=== PATIENT | female | born 1990 | race Caucasian/White ===

== ENCOUNTER 2020-12-04 15:39 | Emergency (ER) | payer SELFPAY ==
[~2020-12-04] VITALS: Ht 152.4 cm; Wt 122.5 kg
[2020-12-04] MEDS ORDERED: PROAIR HFA8.5 GM INH (16:53)
[2020-12-04] MEDS ORDERED: DECADRON6 M1 PO (16:53)
[2020-12-05] MEDS ORDERED: MUCINEX DM 30/61 TAB PO (10:45)
== END 2020-12-04 17:01 | disposition home or self-care (01) ==
LOC: ED 15:39
DX: U07.1 COVID-19 (principal)

== ENCOUNTER 2020-12-08 10:43 | Inpatient (IN) | payer SELFPAY ==
[2020-12-08] VITALS (40 sets, daily range): BP systolic 76–162; BP diastolic 25–102
[~2020-12-08] VITALS: Ht 177.8 cm; Wt 127.0 kg
[~2020-12-08 10:43] MED LIST: DECADRON6 M1 PO; MUCINEX DM 30/61 TAB PO; PROAIR HFA8.5 GM INH
[2020-12-08 11:20] LABS: ABG BASE EXCESS -12.1 mmol/L (-2.0-2.0); ARTERIAL BLOOD GAS PO2 61.7 (80-90)
[2020-12-08 11:22] LABS: ARTERIAL BLOOD GAS PH 7.149 (7.35-7.45)
[2020-12-08 11:59] LABS: HEMATOCRIT 30.6 % (37.0-47.0); MEAN CORPUSCULAR HGB CONC 29.4 g/dl (33.0-37.0); MEAN PLATELET VOLUME 10.5 fl (9.6-12.3); NUCLEATED RED BLOOD CELL 0.3 10*3/uL (0.0-0.0); NUCLEATED RED BLOOD CELL 0.8 % (0.0-0.0); PLATELET COUNT AUTOMATED 496 10*3/uL (130-400); RED CELL DISTRI WIDTH 16.7 % (0-14.5); WHITE BLOOD COUNT 34.1 10*3/uL (4.8-10.8)
[2020-12-08 12:13] LABS: ALBUMIN 2.3 gm/dl (3.1-4.5); ALKALINE PHOSPHATASE 56 U/L (45-117); BUN 13 mg/dl (7-24); CHLORIDE 106 mmol/L (98-107); CREATININE 1.23 mg/dL (0.55-1.02); LDH 613 U/L (84-246); POTASSIUM 3.6 mmol/L (3.5-5.1); SGOT/AST 86 IU/L (3-35); SGPT/ALT 57 U/L (12-78); SODIUM 139 mmol/L (136-145); TOTAL PROTEIN 6.3 gm/dL (6.4-8.2)
[2020-12-08 12:14] LABS: BETA-HCG, QUANT < 1.0 mIU/mL (1-3)
[2020-12-08 12:37] LABS: BURR CELLS FEW; OVALOCYTES FEW; PLATELET SUFFICIENCY HIGH (NORMAL); TOTAL CELLS COUNTED 100 #CELLS
[2020-12-08 15:40] LABS: ABG BASE EXCESS -4.6 mmol/L (-2.0-2.0); ARTERIAL BLOOD GAS PH 7.317 (7.35-7.45)
[2020-12-08 16:33] LABS: ARTERIAL BLOOD GAS PO2 61.4 (80-90)
[2020-12-08 16:36] LABS: ARTERIAL BLOOD GAS PH 7.131 (7.35-7.45)
[2020-12-08 16:40] LABS: ABG BASE EXCESS -10.7 mmol/L (-2.0-2.0)
[2020-12-08 19:27] LABS: ABG BASE EXCESS -5.7 mmol/L (-2.0-2.0); ARTERIAL BLOOD GAS PH 7.239 (7.35-7.45); ARTERIAL BLOOD GAS PO2 50.4 (80-90)
[2020-12-08 22:00] LABS: BILIRUBIN Negative (Negative); BLOOD 3+ (Negative); CLARITY Cloudy (Clear); COLOR Dark Yellow (Yellow); GLUCOSE Negative (Negative); KETONE Negative (Negative); LEUKO ESTERASE Trace (Negative); NITRITE Negative (Negative); PH 5.5 (4.5-8.0)
[2020-12-08 22:13] LABS: BACTERIA 2+; RBC TNTC rbc/hpf (0-2)
[2020-12-09] VITALS (45 sets, daily range): BP systolic 107–160; BP diastolic 50–85
[2020-12-09 06:13] LABS: TOTAL PROTEIN 6.1 gm/dL (6.4-8.2)
[2020-12-09 06:28] LABS: HEMATOCRIT 31.9 % (37.0-47.0); MEAN CELL VOLUME 86.4 fl (81.0-99.0); MEAN CORPUSCULAR HGB 25.2 pg (27.0-31.0); MEAN CORPUSCULAR HGB CONC 29.2 g/dl (33.0-37.0); MEAN PLATELET VOLUME 10.4 fl (9.6-12.3); NUCLEATED RED BLOOD CELL 0.9 % (0.0-0.0); RED BLOOD COUNT 3.69 10*6/uL (4.10-5.10); RED CELL DISTRI WIDTH 16.8 % (0-14.5)
[2020-12-09 06:37] LABS: ALBUMIN 2.3 gm/dl (3.1-4.5)
[2020-12-09 06:48] LABS: PLATELET COUNT AUTOMATED 298 10*3/uL (130-400)
[2020-12-09 06:56] LABS: CREATININE 2.91 mg/dL (0.55-1.02)
[2020-12-09 07:12] LABS: POTASSIUM 5.2 mmol/L (3.5-5.1)
[2020-12-09 07:34] LABS: TOTAL CELLS COUNTED 100 #CELLS
[2020-12-09 07:35] LABS: BURR CELLS FEW; OVALOCYTES FEW; PLATELET SUFFICIENCY NORMAL (NORMAL)
[2020-12-09 07:37] LABS: NUCLEATED RED BLOOD CELL 0.3 10*3/uL (0.0-0.0)
[2020-12-09 08:04] LABS: ARTERIAL BLOOD GAS PO2 71.8 (80-90)
[2020-12-09 08:06] LABS: ABG BASE EXCESS -7.9 mmol/L (-2.0-2.0)
[2020-12-09 08:08] LABS: ARTERIAL BLOOD GAS PH 7.135 (7.35-7.45)
[2020-12-09 11:50] LABS: ABG BASE EXCESS -8.8 mmol/L (-2.0-2.0)
[2020-12-09 11:51] LABS: ARTERIAL BLOOD GAS PH 7.103 (7.35-7.45)
== END 2020-12-09 12:38 | disposition short-term general hospital (02) | DRG 208 ==
LOC: ED 10:43 → ICCU 11:27 → EDHOLD 11:27 → ICCU 13:24
PROVIDERS: Family Medicine; Internal Medicine Critical Care Medicine; Nurse Practitioner; ADMIT Internal Medicine; ATTEND Internal Medicine
PROC: 5A1935Z Respiratory Ventilation, Less than 24 Consecutive Hours (ICD-10-PCS; principal; 2020-12-08)
PROC: 0BH17EZ Insertion of Endotracheal Airway into Trachea, Via Natural or Artificial Opening (ICD-10-PCS; 2020-12-08)
PROC: 5A09357 Assistance with Respiratory Ventilation, Less than 24 Consecutive Hours, Continuous Positive Airway Pressure (ICD-10-PCS; 2020-12-08)
DX: U07.1 COVID-19 (principal); J12.82 Pneumonia due to coronavirus disease 2019; J80 Acute respiratory distress syndrome; N17.9 Acute kidney failure, unspecified; E87.2 Acidosis; Z68.41 Body mass index [BMI] 40.0-44.9, adult; N18.9 Chronic kidney disease, unspecified; R73.9 Hyperglycemia, unspecified; D64.9 Anemia, unspecified; E66.01 Morbid (severe) obesity due to excess calories; R74.01 Elevation of levels of liver transaminase levels; I95.9 Hypotension, unspecified; Z88.8 Allergy status to other drugs, medicaments and biological substances

== ENCOUNTER → 2021-02-12 | Outpatient (CLI) | payer OTHER | LOC: WOUNDCARE 02:05 | PROVIDERS: ATTEND Nurse Practitioner | DX: L89.893 Pressure ulcer of other site, stage 3 (principal); N19 Unspecified kidney failure ==

== ENCOUNTER → 2021-02-25 | Outpatient (CLI) | payer OTHER | LOC: WOUNDCARE 01:06 | PROVIDERS: ATTEND Nurse Practitioner Family | DX: L89.893 Pressure ulcer of other site, stage 3 (principal); N18.9 Chronic kidney disease, unspecified; I25.2 Old myocardial infarction; Z99.2 Dependence on renal dialysis ==

== ENCOUNTER → 2021-03-11 | Outpatient (CLI) | payer OTHER | LOC: WOUNDCARE 01:37 | PROVIDERS: ATTEND Nurse Practitioner Family | DX: L89.893 Pressure ulcer of other site, stage 3 (principal); N19 Unspecified kidney failure; I25.2 Old myocardial infarction; Z99.2 Dependence on renal dialysis ==

== ENCOUNTER → 2021-03-25 | Outpatient (CLI) | payer OTHER | LOC: WOUNDCARE 00:55 | PROVIDERS: ATTEND Nurse Practitioner Family | DX: L89.893 Pressure ulcer of other site, stage 3 (principal); N19 Unspecified kidney failure; I25.2 Old myocardial infarction; Z99.2 Dependence on renal dialysis ==

== ENCOUNTER → 2021-10-02 | Outpatient (CLI) | payer OTHER ==
[2021-10-02 11:59] LABS: CREATININE 1.78 mg/dL (0.55-1.02); POTASSIUM 4.1 mmol/L (3.5-5.1)
== END | disposition home or self-care (01) ==
LOC: LAB 11:17
PROVIDERS: ATTEND Internal Medicine Nephrology
DX: N18.30 Chronic kidney disease, stage 3 unspecified (principal)

== ENCOUNTER → 2022-02-08 | Outpatient (CLI) | payer OTHER ==
[2022-02-08 15:35] LABS: BASO # 0.1 10*3/uL (0.0-0.1); BASO % 0.6 % (0.0-1.0); EOS # 0.2 10*3/uL (0.0-0.4); EOS % 1.4 % (1.0-4.0); HEMATOCRIT 37.8 % (37.0-47.0); LYMPH # 2.6 10*3/uL (1.3-4.4); LYMPH % 18.1 % (27.0-41.0); MEAN CELL VOLUME 81.6 fl (81.0-99.0); MEAN CORPUSCULAR HGB CONC 29.4 g/dl (33.0-37.0); MEAN PLATELET VOLUME 9.8 fl (9.6-12.3); MONO % 6.7 % (3.0-9.0); NEUT # 10.5 10*3/uL (2.3-7.9); NEUT % 72.7 % (47.0-73.0); PLATELET COUNT AUTOMATED 479 10*3/uL (130-400); RED BLOOD COUNT 4.63 10*6/uL (4.10-5.10); RED CELL DISTRI WIDTH 16.8 % (0-14.5); WHITE BLOOD COUNT 14.4 10*3/uL (4.8-10.8)
[2022-02-08 15:40] LABS: BILIRUBIN Negative (Negative); BLOOD 3+ (Negative); CLARITY Clear (Clear); COLOR Orange (Yellow); GLUCOSE Negative (Negative); KETONE Negative (Negative); LEUKO ESTERASE 1+ (Negative); NITRITE Negative (Negative); SPECIFIC GRAVITY 1.015 (1.001-1.030); UROBILINOGEN 0.2 E.U./dl (0.0-1.0)
[2022-02-08 15:55] LABS: BACTERIA 2+; RBC TNTC rbc/hpf (0-2)
[2022-02-08 15:56] LABS: EPITHELIAL CELLS 0-2
[2022-02-08 16:03] LABS: FERRITIN 18.2 ng/mL (10.0-291.0)
[2022-02-08 16:06] LABS: CREATININE 1.64 mg/dL (0.55-1.02); POTASSIUM 4.2 mmol/L (3.5-5.1)
== END | disposition home or self-care (01) ==
LOC: LAB 14:41
PROVIDERS: ATTEND Internal Medicine Nephrology
DX: N18.30 Chronic kidney disease, stage 3 unspecified (principal); N25.81 Secondary hyperparathyroidism of renal origin; D63.1 Anemia in chronic kidney disease

== ENCOUNTER → 2022-02-19 | Outpatient (CLI) | payer OTHER ==
[2022-02-19 16:34] LABS: BILIRUBIN Negative (Negative); BLOOD 1+ (Negative); CLARITY Clear (Clear); COLOR Yellow (Yellow); GLUCOSE Negative (Negative); KETONE Negative (Negative); LEUKO ESTERASE 1+ (Negative); NITRITE Negative (Negative); UROBILINOGEN 0.2 E.U./dl (0.0-1.0)
[2022-02-19 16:48] LABS: BACTERIA 1+; WBC 16-20 wbc/hpf (0-5)
== END | disposition home or self-care (01) ==
LOC: LAB 15:59
PROVIDERS: ATTEND Internal Medicine Nephrology
DX: N18.30 Chronic kidney disease, stage 3 unspecified (principal)

== ENCOUNTER → 2022-05-11 | Outpatient (CLI) | payer OTHER ==
[2022-05-11 14:52] LABS: BASO # 0.1 10*3/uL (0.0-0.1); BASO % 0.5 % (0.0-1.0); EOS # 0.2 10*3/uL (0.0-0.4); EOS % 1.6 % (1.0-4.0); LYMPH # 2.5 10*3/uL (1.3-4.4); LYMPH % 16.5 % (27.0-41.0); MEAN CELL VOLUME 78.8 fl (81.0-99.0); MEAN CORPUSCULAR HGB 22.4 pg (27.0-31.0); MEAN CORPUSCULAR HGB CONC 28.5 g/dl (33.0-37.0); MEAN PLATELET VOLUME 9.5 fl (9.6-12.3); MONO # 1.2 10*3/uL (0.1-1.0); MONO % 7.6 % (3.0-9.0); NEUT # 11.3 10*3/uL (2.3-7.9); NEUT % 73.2 % (47.0-73.0); PLATELET COUNT AUTOMATED 521 10*3/uL (130-400); RED BLOOD COUNT 4.19 10*6/uL (4.10-5.10); WHITE BLOOD COUNT 15.3 10*3/uL (4.8-10.8)
[2022-05-11 14:57] LABS: BILIRUBIN Negative (Negative); BLOOD 2+ (Negative); CLARITY Clear (Clear); COLOR Yellow (Yellow); GLUCOSE Negative (Negative); KETONE Negative (Negative); LEUKO ESTERASE 2+ (Negative); NITRITE Negative (Negative); SPECIFIC GRAVITY 1.015 (1.001-1.030); UROBILINOGEN 0.2 E.U./dl (0.0-1.0)
[2022-05-11 15:04] LABS: BACTERIA 2+; RBC TNTC rbc/hpf (0-2)
[2022-05-11 15:05] LABS: WBC 21-30 wbc/hpf (0-5)
[2022-05-11 15:07] LABS: POTASSIUM 4.5 mmol/L (3.4-5.1)
[2022-05-12 08:33] LABS: URINE CREATININE RANDOM 88.41 mg/dL
== END | disposition home or self-care (01) ==
LOC: LAB 14:07
PROVIDERS: ATTEND Internal Medicine Nephrology
DX: N18.30 Chronic kidney disease, stage 3 unspecified (principal); N25.81 Secondary hyperparathyroidism of renal origin; D63.1 Anemia in chronic kidney disease

== ENCOUNTER → 2022-05-19 | Outpatient (CLI) | payer OTHER ==
[2022-05-19 15:20] LABS: BASO # 0.1 10*3/uL (0.0-0.1); BASO % 0.4 % (0.0-1.0); EOS # 0.2 10*3/uL (0.0-0.4); EOS % 0.9 % (1.0-4.0); HEMATOCRIT 34.6 % (37.0-47.0); LYMPH # 2.9 10*3/uL (1.3-4.4); LYMPH % 15.8 % (27.0-41.0); MEAN CELL VOLUME 78.6 fl (81.0-99.0); MEAN CORPUSCULAR HGB CONC 29.2 g/dl (33.0-37.0); MEAN PLATELET VOLUME 9.5 fl (9.6-12.3); MONO % 5.5 % (3.0-9.0); NEUT % 76.4 % (47.0-73.0); PLATELET COUNT AUTOMATED 580 10*3/uL (130-400); RED CELL DISTRI WIDTH 16.6 % (0-14.5); WHITE BLOOD COUNT 18.3 10*3/uL (4.8-10.8)
[2022-05-19 15:31] LABS: FREE T4 1.35 ng/dl (0.89-1.76); POTASSIUM 4.7 mmol/L (3.4-5.1); THYROID STIM HORMONE (HS) 0.943 uIU/ml (0.550-4.780); TOTAL PROTEIN 7.9 gm/dL (6.0-8.0)
[2022-05-19 15:48] LABS: VITAMIN D, 25-HYDROXY 21.6 ng/mL (30-100)
== END | disposition home or self-care (01) ==
LOC: LAB 14:16
PROVIDERS: ATTEND Internal Medicine
DX: Z13.220 Encounter for screening for lipoid disorders (principal); Z13.0 Encounter for screening for diseases of the blood and blood-forming organs and certain disorders involving the immune mechanism; Z13.1 Encounter for screening for diabetes mellitus; Z13.21 Encounter for screening for nutritional disorder; Z13.228 Encounter for screening for other metabolic disorders; Z13.29 Encounter for screening for other suspected endocrine disorder; Z13.89 Encounter for screening for other disorder; Z13.9 Encounter for screening, unspecified; I10 Essential (primary) hypertension; E55.9 Vitamin D deficiency, unspecified; E61.1 Iron deficiency; R73.09 Other abnormal glucose

== ENCOUNTER → 2022-06-28 | Outpatient (CLI) | payer OTHER ==
[2022-06-28 12:11] LABS: BASO # 0.1 10*3/uL (0.0-0.1); BASO % 0.6 % (0.0-1.0); EOS # 0.3 10*3/uL (0.0-0.4); EOS % 1.9 % (1.0-4.0); HEMATOCRIT 33.9 % (37.0-47.0); LYMPH # 2.7 10*3/uL (1.3-4.4); LYMPH % 19.7 % (27.0-41.0); MEAN CORPUSCULAR HGB 21.2 pg (27.0-31.0); MEAN CORPUSCULAR HGB CONC 28.3 g/dl (33.0-37.0); MONO # 0.8 10*3/uL (0.1-1.0); MONO % 5.9 % (3.0-9.0); NEUT # 9.6 10*3/uL (2.3-7.9); NEUT % 71.2 % (47.0-73.0); PLATELET COUNT AUTOMATED 607 10*3/uL (130-400); RED BLOOD COUNT 4.52 10*6/uL (4.10-5.10); RED CELL DISTRI WIDTH 16.2 % (0-14.5); WHITE BLOOD COUNT 13.5 10*3/uL (4.8-10.8)
[2022-06-28 12:33] LABS: ALKALINE PHOSPHATASE 94 U/L (46-116); BUN 17 mg/dl (9-23); CHLORIDE 106 mmol/L (98-107); FREE T4 1.19 ng/dl (0.89-1.76); POTASSIUM 4.2 mmol/L (3.4-5.1); SGPT/ALT 13 U/L (10-49); THYROID STIM HORMONE (HS) 0.977 uIU/ml (0.550-4.780); TOTAL PROTEIN 7.7 gm/dL (6.0-8.0)
[2022-06-28 12:34] LABS: B-hCG (QUALITATIVE) NEGATIVE (NEGATIVE)
[2022-06-29 05:06] LABS: HEPATITIS B SURFACE AG Negative (Negative)
== END | disposition home or self-care (01) ==
LOC: LAB 11:30
PROVIDERS: ATTEND Nurse Practitioner Women's Health
DX: O02.81 Inappropriate change in quantitative human chorionic gonadotropin (hCG) in early pregnancy (principal); L68.0 Hirsutism; E28.2 Polycystic ovarian syndrome; E66.9 Obesity, unspecified; E88.81 Metabolic syndrome and other insulin resistance; L83 Acanthosis nigricans; N92.6 Irregular menstruation, unspecified; Z68.42 Body mass index [BMI] 45.0-49.9, adult; Z11.3 Encounter for screening for infections with a predominantly sexual mode of transmission

== ENCOUNTER → 2022-10-21 | Outpatient (CLI) | payer OTHER ==
[2022-10-21 12:52] LABS: BASO # 0.1 10*3/uL (0.0-0.1); BASO % 0.4 % (0.0-1.0); EOS # 0.2 10*3/uL (0.0-0.4); EOS % 1.5 % (1.0-4.0); HEMATOCRIT 30.9 % (37.0-47.0); LYMPH # 2.3 10*3/uL (1.3-4.4); LYMPH % 14.2 % (27.0-41.0); MEAN CELL VOLUME 70.7 fl (81.0-99.0); MEAN CORPUSCULAR HGB 20.4 pg (27.0-31.0); MEAN CORPUSCULAR HGB CONC 28.8 g/dl (33.0-37.0); MEAN PLATELET VOLUME 9.1 fl (9.6-12.3); MONO % 6.1 % (3.0-9.0); NEUT # 12.4 10*3/uL (2.3-7.9); NEUT % 77.2 % (47.0-73.0); PLATELET COUNT AUTOMATED 559 10*3/uL (130-400); RED BLOOD COUNT 4.37 10*6/uL (4.10-5.10); RED CELL DISTRI WIDTH 19.1 % (0-14.5)
[2022-10-21 13:24] LABS: POTASSIUM 3.9 mmol/L (3.4-5.1)
== END | disposition home or self-care (01) ==
LOC: LAB 12:28
PROVIDERS: ATTEND Internal Medicine Nephrology
DX: N18.30 Chronic kidney disease, stage 3 unspecified (principal); D63.1 Anemia in chronic kidney disease

== ENCOUNTER → 2023-01-11 | Outpatient (CLI) | payer OTHER ==
[2023-01-11 10:09] LABS: BASO # 0.1 10*3/uL (0.0-0.1); BASO % 0.5 % (0.0-1.0); EOS # 0.3 10*3/uL (0.0-0.4); EOS % 1.8 % (1.0-4.0); HEMATOCRIT 29.7 % (37.0-47.0); LYMPH # 2.4 10*3/uL (1.3-4.4); LYMPH % 15.8 % (27.0-41.0); MEAN CELL VOLUME 67.8 fl (81.0-99.0); MEAN CORPUSCULAR HGB 19.2 pg (27.0-31.0); MEAN CORPUSCULAR HGB CONC 28.3 g/dl (33.0-37.0); MEAN PLATELET VOLUME 8.6 fl (9.6-12.3); MONO # 1.2 10*3/uL (0.1-1.0); MONO % 7.8 % (3.0-9.0); NEUT # 11.1 10*3/uL (2.3-7.9); NEUT % 73.5 % (47.0-73.0); PLATELET COUNT AUTOMATED 664 10*3/uL (130-400); RED BLOOD COUNT 4.38 10*6/uL (4.10-5.10); RED CELL DISTRI WIDTH 17.9 % (0-14.5); WHITE BLOOD COUNT 15.1 10*3/uL (4.8-10.8)
[2023-01-11 10:31] LABS: POTASSIUM 4.1 mmol/L (3.4-5.1)
== END | disposition home or self-care (01) ==
LOC: LAB 09:34
PROVIDERS: ATTEND Internal Medicine Nephrology
DX: N18.30 Chronic kidney disease, stage 3 unspecified (principal); D63.1 Anemia in chronic kidney disease

== ENCOUNTER → 2023-03-08 | Outpatient (CLI) | payer SELFPAY ==
[2023-03-08 10:52] LABS: HEMATOCRIT 34.3 % (37.0-47.0); MEAN CELL VOLUME 70.7 fl (81.0-99.0); MEAN CORPUSCULAR HGB 19.2 pg (27.0-31.0); MEAN CORPUSCULAR HGB CONC 27.1 g/dl (33.0-37.0); PLATELET COUNT AUTOMATED 566 10*3/uL (130-400); RED BLOOD COUNT 4.85 10*6/uL (4.10-5.10); RED CELL DISTRI WIDTH 21.8 % (0-14.5); WHITE BLOOD COUNT 24.9 10*3/uL (4.8-10.8)
[2023-03-08 10:54] LABS: MANUAL DIFF REFLEX YES
[2023-03-08 11:21] LABS: POTASSIUM 4.4 mmol/L (3.4-5.1)
[2023-03-08 11:25] LABS: VITAMIN D, 25-HYDROXY 36.2 ng/mL (30-100)
[2023-03-08 11:36] LABS: BASOPHILS 2 % (0-1); PLATELET SUFFICIENCY HIGH (NORMAL); TOTAL CELLS COUNTED 100 #CELLS
[2023-03-08 11:37] LABS: MICROCYTOSIS MODERATE; OVALOCYTES MODERATE
[2023-03-08 11:40] LABS: BILIRUBIN Negative (Negative); BLOOD 2+ (Negative); CLARITY Cloudy (Clear); COLOR Yellow (Yellow); GLUCOSE Negative (Negative); KETONE Negative (Negative); LEUKO ESTERASE 2+ (Negative); NITRITE Negative (Negative); PH 5.5 (4.5-8.0); SPECIFIC GRAVITY 1.015 (1.001-1.030); UROBILINOGEN 0.2 E.U./dl (0.0-1.0)
[2023-03-08 12:45] LABS: BACTERIA 1+; WBC 21-30 wbc/hpf (0-5)
[2023-03-08 13:18] LABS: URINE CREATININE RANDOM 130.04 mg/dL
== END | disposition home or self-care (01) ==
LOC: LAB 10:09
PROVIDERS: ATTEND Internal Medicine Nephrology
DX: N18.30 Chronic kidney disease, stage 3 unspecified (principal); D63.1 Anemia in chronic kidney disease

== ENCOUNTER 2023-03-31 19:10 | Emergency (ER) | payer SELFPAY ==
[~2023-03-31] VITALS: Ht 152.4 cm; Wt 99.8 kg
[2023-03-31] MEDS ORDERED: LISINOPRIL10 M1 PO (19:30)
[2023-03-31 19:41] LABS: BILIRUBIN Negative (Negative); BLOOD 2+ (Negative); CLARITY Clear (Clear); COLOR Yellow (Yellow); GLUCOSE Negative (Negative); KETONE Negative (Negative); LEUKO ESTERASE 2+ (Negative); NITRITE Negative (Negative); UROBILINOGEN 0.2 E.U./dl (0.0-1.0)
[2023-03-31 19:49] LABS: HEMATOCRIT 33.4 % (37.0-47.0); MEAN CELL VOLUME 69.7 fl (81.0-99.0); MEAN CORPUSCULAR HGB 19.6 pg (27.0-31.0); MEAN CORPUSCULAR HGB CONC 28.1 g/dl (33.0-37.0); MEAN PLATELET VOLUME 8.8 fl (9.6-12.3); PLATELET COUNT AUTOMATED 621 10*3/uL (130-400); RED BLOOD COUNT 4.79 10*6/uL (4.10-5.10); RED CELL DISTRI WIDTH 20.8 % (0-14.5); WHITE BLOOD COUNT 26.8 10*3/uL (4.8-10.8)
[2023-03-31 20:04] LABS: BACTERIA 2+; EPITHELIAL CELLS 51-100
[2023-03-31 20:07] LABS: MANUAL DIFF REFLEX YES
[2023-03-31 20:09] LABS: ALKALINE PHOSPHATASE 96 U/L (46-116); BASOPHILS 1 % (0-1); BUN 14 mg/dl (9-23); CHLORIDE 109 mmol/L (98-107); TOTAL CELLS COUNTED 100 #CELLS; TOTAL PROTEIN 7.1 gm/dL (6.0-8.0)
[2023-03-31 20:10] LABS: MICROCYTOSIS SLIGHT; OVALOCYTES FEW; PLATELET SUFFICIENCY HIGH (NORMAL)
[2023-03-31 20:11] LABS: POLYCHROMASIA SLIGHT
[2023-03-31 20:13] LABS: SGPT/ALT < 7 U/L (5-49)
== END 2023-03-31 20:40 | disposition home or self-care (01) ==
LOC: ED 19:10
PROVIDERS: Nurse Practitioner Family
DX: R10.9 Unspecified abdominal pain (principal); R30.9 Painful micturition, unspecified; R53.83 Other fatigue; R11.2 Nausea with vomiting, unspecified; Z88.1 Allergy status to other antibiotic agents; Z79.899 Other long term (current) drug therapy

== ENCOUNTER 2023-04-25 14:53 | Emergency (ER) | payer SELFPAY ==
[~2023-04-25] VITALS: Ht 152.4 cm; Wt 107.0 kg
[~2023-04-25 14:53] MED LIST changes: +LISINOPRIL10 M1 PO
== END 2023-04-25 15:30 | disposition home or self-care (01) ==
LOC: ED 14:53
DX: U07.1 COVID-19 (principal); Z88.1 Allergy status to other antibiotic agents; Z88.8 Allergy status to other drugs, medicaments and biological substances; Z91.040 Latex allergy status

== ENCOUNTER 2023-05-07 20:14 | Emergency (ER) | payer SELFPAY ==
[~2023-05-07] VITALS: Ht 152.4 cm; Wt 96.6 kg
[2023-05-07] MEDS ORDERED: ASPIRIN81 M1 PO (20:25)
[2023-05-07 21:38] LABS: BILIRUBIN Negative (Negative); BLOOD 3+ (Negative); CLARITY Cloudy (Clear); COLOR Yellow (Yellow); GLUCOSE Negative (Negative); KETONE Negative (Negative); LEUKO ESTERASE 1+ (Negative); NITRITE Negative (Negative); SPECIFIC GRAVITY 1.015 (1.001-1.030)
[2023-05-07 21:42] LABS: MEAN CELL VOLUME 70.8 fl (81.0-99.0); MEAN CORPUSCULAR HGB 19.3 pg (27.0-31.0); MEAN CORPUSCULAR HGB CONC 27.3 g/dl (33.0-37.0); MEAN PLATELET VOLUME 8.6 fl (9.6-12.3); NUCLEATED RED BLOOD CELL 0.1 % (0.0-0.0); PLATELET COUNT AUTOMATED 821 10*3/uL (130-400); RED BLOOD COUNT 4.24 10*6/uL (4.10-5.10); RED CELL DISTRI WIDTH 19.1 % (0-14.5); WHITE BLOOD COUNT 30.6 10*3/uL (4.8-10.8)
[2023-05-07 21:51] LABS: MANUAL DIFF REFLEX YES
[2023-05-07 21:54] LABS: BACTERIA 2+; RBC 21-30 rbc/hpf (0-2)
[2023-05-07 22:02] LABS: ACT PARTIAL THROMBO TIME 28.9 SECONDS (20.0-32.1)
[2023-05-07 22:03] LABS: ALKALINE PHOSPHATASE 109 U/L (46-116); BUN 14 mg/dl (9-23); CHLORIDE 104 mmol/L (98-107); CPK 43 U/L (34-171); LIPASE 25 U/L (12-53); POTASSIUM 4.2 mmol/L (3.4-5.1); TOTAL PROTEIN 7.5 gm/dL (6.0-8.0)
[2023-05-07 22:04] LABS: SGPT/ALT < 7 U/L (5-49)
[2023-05-07 22:07] LABS: MICROCYTOSIS SLIGHT; PLATELET SUFFICIENCY HIGH (NORMAL); TOTAL CELLS COUNTED 100 #CELLS
[2023-05-07 22:08] LABS: OVALOCYTES FEW
[2023-05-07] MEDS ORDERED: OMNICEF300 MG PO (22:47)
== END 2023-05-08 02:10 | disposition home or self-care (01) ==
LOC: ED 20:14
PROVIDERS: Nurse Practitioner Family
DX: N39.0 Urinary tract infection, site not specified (principal); D64.9 Anemia, unspecified; E88.09 Other disorders of plasma-protein metabolism, not elsewhere classified; D72.829 Elevated white blood cell count, unspecified; Z88.1 Allergy status to other antibiotic agents; Z20.822 Contact with and (suspected) exposure to COVID-19

== ENCOUNTER 2023-05-11 00:10 | Emergency (ER) | payer SELFPAY ==
[~2023-05-11] VITALS: Ht 154.9 cm; Wt 104.3 kg
[~2023-05-11 00:10] MED LIST changes: +ASPIRIN81 M1 PO; +OMNICEF300 MG PO
[2023-05-11 00:45] LABS: BILIRUBIN Negative (Negative); BLOOD 2+ (Negative); CLARITY Cloudy (Clear); COLOR Yellow (Yellow); GLUCOSE Negative (Negative); KETONE 2+ (Negative); LEUKO ESTERASE 1+ (Negative); NITRITE Negative (Negative); PH 5.5 (4.5-8.0)
[2023-05-11 01:08] LABS: BACTERIA 2+; EPITHELIAL CELLS 21-30; WBC 41-50 wbc/hpf (0-5)
[2023-05-11 01:45] LABS: HEMATOCRIT 30.8 % (37.0-47.0); MEAN CELL VOLUME 71.1 fl (81.0-99.0); MEAN CORPUSCULAR HGB 19.2 pg (27.0-31.0); MEAN CORPUSCULAR HGB CONC 26.9 g/dl (33.0-37.0); MEAN PLATELET VOLUME 8.7 fl (9.6-12.3); PLATELET COUNT AUTOMATED 905 10*3/uL (130-400); RED BLOOD COUNT 4.33 10*6/uL (4.10-5.10); RED CELL DISTRI WIDTH 18.6 % (0-14.5)
[2023-05-11 01:46] LABS: MANUAL DIFF REFLEX YES
[2023-05-11 02:02] LABS: ALKALINE PHOSPHATASE 113 U/L (46-116); BUN 18 mg/dl (9-23); CHLORIDE 102 mmol/L (98-107); POTASSIUM 4.4 mmol/L (3.4-5.1); TOTAL PROTEIN 7.8 gm/dL (6.0-8.0)
[2023-05-11 02:03] LABS: SGPT/ALT < 7 U/L (5-49)
[2023-05-11 02:10] LABS: PLATELET SUFFICIENCY HIGH (NORMAL); POLYCHROMASIA SLIGHT; ROULEAUX MODERATE; TOTAL CELLS COUNTED 100 #CELLS
== END 2023-05-11 06:45 | disposition short-term general hospital (02) ==
LOC: ED 00:10
PROVIDERS: Emergency Medicine
DX: A41.9 Sepsis, unspecified organism (principal); R19.00 Intra-abdominal and pelvic swelling, mass and lump, unspecified site; D64.9 Anemia, unspecified; E88.09 Other disorders of plasma-protein metabolism, not elsewhere classified; N18.9 Chronic kidney disease, unspecified; Z88.1 Allergy status to other antibiotic agents; Z91.040 Latex allergy status

== ENCOUNTER → 2023-06-08 | Outpatient (CLI) | payer OTHER ==
[2023-06-07 16:12] LABS: BASO # 0.1 10*3/uL (0.0-0.1); BASO % 0.4 % (0.0-1.0); EOS # 0.1 10*3/uL (0.0-0.4); EOS % 0.8 % (1.0-4.0); HEMATOCRIT 24.6 % (37.0-47.0); LYMPH # 2.1 10*3/uL (1.3-4.4); MEAN CELL VOLUME 78.6 fl (81.0-99.0); MEAN CORPUSCULAR HGB 22.4 pg (27.0-31.0); MEAN CORPUSCULAR HGB CONC 28.5 g/dl (33.0-37.0); MEAN PLATELET VOLUME 8.6 fl (9.6-12.3); MONO % 6.5 % (3.0-9.0); NEUT # 12.5 10*3/uL (2.3-7.9); NEUT % 78.5 % (47.0-73.0); PLATELET COUNT AUTOMATED 781 10*3/uL (130-400); RED BLOOD COUNT 3.13 10*6/uL (4.10-5.10); RED CELL DISTRI WIDTH 22.6 % (0-14.5)
[2023-06-08] VITALS (13 sets, daily range): BP systolic 111–149; BP diastolic 49–77
[~2023-06-08] MED LIST changes: +COLACE100 MG PO; +ELIQUIS2.5 M1 PO; +FEOSOL,FER300 MG/5 M PO; +FRUIT C-100100 MG PO; +MAG-OXIDE200 MG PO; +MIRALAX POWDER17 G1 PO; +TYLENOL325 M2 PO
== END | disposition home or self-care (01) ==
LOC: TRNFUSION 06-07 13:56
PROVIDERS: ATTEND Obstetrics & Gynecology Gynecology
DX: D64.9 Anemia, unspecified (principal); Z88.1 Allergy status to other antibiotic agents

== ENCOUNTER → 2023-06-30 | Outpatient (CLI) | payer OTHER ==
[2023-06-30 09:41] LABS: BASO % 0.8 % (0.0-1.0); EOS % 1.1 % (1.0-4.0); HEMATOCRIT 31.5 % (37.0-47.0); LYMPH # 0.8 10*3/uL (1.3-4.4); LYMPH % 29.9 % (27.0-41.0); MEAN CELL VOLUME 86.3 fl (81.0-99.0); MEAN CORPUSCULAR HGB 25.5 pg (27.0-31.0); MEAN CORPUSCULAR HGB CONC 29.5 g/dl (33.0-37.0); MEAN PLATELET VOLUME 9.3 fl (9.6-12.3); MONO # 0.3 10*3/uL (0.1-1.0); MONO % 12.9 % (3.0-9.0); NEUT # 1.5 10*3/uL (2.3-7.9); NEUT % 54.9 % (47.0-73.0); PLATELET COUNT AUTOMATED 145 10*3/uL (130-400); RED BLOOD COUNT 3.65 10*6/uL (4.10-5.10); RED CELL DISTRI WIDTH 21.9 % (0-14.5); WHITE BLOOD COUNT 2.6 10*3/uL (4.8-10.8)
[2023-06-30 09:51] LABS: ACT PARTIAL THROMBO TIME 25.4 SECONDS (20.0-32.1)
[2023-06-30 10:07] LABS: FREE T4 1.25 ng/dl (0.89-1.76); POTASSIUM 4.2 mmol/L (3.4-5.1); TOTAL PROTEIN 6.8 gm/dL (6.0-8.0)
== END | disposition home or self-care (01) ==
LOC: LAB 08:47
PROVIDERS: ATTEND Obstetrics & Gynecology Gynecology
DX: C54.1 Malignant neoplasm of endometrium (principal); C54.9 Malignant neoplasm of corpus uteri, unspecified; E06.4 Drug-induced thyroiditis; I87.8 Other specified disorders of veins

== ENCOUNTER → 2023-07-21 | Outpatient (CLI) | payer OTHER ==
[2023-07-21 12:26] LABS: HEMATOCRIT 28.4 % (37.0-47.0); MEAN CELL VOLUME 87.7 fl (81.0-99.0); MEAN CORPUSCULAR HGB 25.9 pg (27.0-31.0); MEAN CORPUSCULAR HGB CONC 29.6 g/dl (33.0-37.0); MEAN PLATELET VOLUME 10.3 fl (9.6-12.3); RED BLOOD COUNT 3.24 10*6/uL (4.10-5.10); RED CELL DISTRI WIDTH 21.3 % (0-14.5); WHITE BLOOD COUNT 3.8 10*3/uL (4.8-10.8)
[2023-07-21 13:08] LABS: FREE T4 1.13 ng/dl (0.89-1.76); POTASSIUM 4.2 mmol/L (3.4-5.1); TOTAL PROTEIN 6.6 gm/dL (6.0-8.0)
[2023-07-21 13:14] LABS: MANUAL DIFF REFLEX YES
[2023-07-21 13:18] LABS: PLATELET COUNT AUTOMATED 28 10*3/uL (130-400)
[2023-07-21 13:20] LABS: OVALOCYTES FEW; PLATELET SUFFICIENCY LOW (NORMAL); POLYCHROMASIA SLIGHT; TOTAL CELLS COUNTED 100 #CELLS
== END | disposition home or self-care (01) ==
LOC: LAB 12:03
PROVIDERS: ATTEND Obstetrics & Gynecology Gynecology
DX: C54.1 Malignant neoplasm of endometrium (principal); E06.4 Drug-induced thyroiditis

== ENCOUNTER → 2023-07-22 | Outpatient (CLI) | payer OTHER ==
[2023-07-22 09:38] LABS: EOS % 0.2 % (1.0-4.0); HEMATOCRIT 27.5 % (37.0-47.0); LYMPH % 48.5 % (27.0-41.0); MEAN CELL VOLUME 88.1 fl (81.0-99.0); MEAN CORPUSCULAR HGB CONC 29.5 g/dl (33.0-37.0); MEAN PLATELET VOLUME 9.2 fl (9.6-12.3); MONO # 0.4 10*3/uL (0.1-1.0); MONO % 9.9 % (3.0-9.0); NEUT # 1.7 10*3/uL (2.3-7.9); NEUT % 41.2 % (47.0-73.0); RED BLOOD COUNT 3.12 10*6/uL (4.10-5.10); RED CELL DISTRI WIDTH 21.7 % (0-14.5)
[2023-07-22 10:00] LABS: TOTAL CELLS COUNTED 100 #CELLS
[2023-07-22 10:01] LABS: PLATELET COUNT AUTOMATED 37 10*3/uL (130-400); PLATELET SUFFICIENCY LOW (NORMAL)
[2023-07-22 10:04] LABS: POTASSIUM 4.2 mmol/L (3.4-5.1)
== END | disposition home or self-care (01) ==
LOC: LAB 09:19
PROVIDERS: ATTEND Obstetrics & Gynecology Gynecology
DX: C54.1 Malignant neoplasm of endometrium (principal); D69.6 Thrombocytopenia, unspecified

== ENCOUNTER → 2023-07-28 | Outpatient (CLI) | payer OTHER ==
[2023-07-28 08:41] LABS: BASO % 0.4 % (0.0-1.0); EOS % 0.7 % (1.0-4.0); HEMATOCRIT 31.1 % (37.0-47.0); LYMPH # 2.3 10*3/uL (1.3-4.4); LYMPH % 39.6 % (27.0-41.0); MEAN CELL VOLUME 90.9 fl (81.0-99.0); MEAN CORPUSCULAR HGB 26.9 pg (27.0-31.0); MEAN CORPUSCULAR HGB CONC 29.6 g/dl (33.0-37.0); MEAN PLATELET VOLUME 9.4 fl (9.6-12.3); MONO # 0.7 10*3/uL (0.1-1.0); MONO % 12.3 % (3.0-9.0); NEUT # 2.6 10*3/uL (2.3-7.9); NEUT % 46.3 % (47.0-73.0); NUCLEATED RED BLOOD CELL 0.4 % (0.0-0.0); PLATELET COUNT AUTOMATED 333 10*3/uL (130-400); RED BLOOD COUNT 3.42 10*6/uL (4.10-5.10); RED CELL DISTRI WIDTH 23.8 % (0-14.5); WHITE BLOOD COUNT 5.7 10*3/uL (4.8-10.8)
[2023-07-28 09:03] LABS: POTASSIUM 4.5 mmol/L (3.4-5.1); TOTAL PROTEIN 7.1 gm/dL (6.0-8.0)
== END | disposition home or self-care (01) ==
LOC: LAB 08:21
PROVIDERS: ATTEND Obstetrics & Gynecology Gynecology
DX: C54.1 Malignant neoplasm of endometrium (principal); D69.6 Thrombocytopenia, unspecified

== ENCOUNTER → 2023-08-18 | Outpatient (CLI) | payer OTHER, MEDICAID ==
[2023-08-18 12:36] LABS: BASO % 0.7 % (0.0-1.0); EOS % 0.5 % (1.0-4.0); HEMATOCRIT 32.6 % (37.0-47.0); LYMPH # 1.7 10*3/uL (1.3-4.4); LYMPH % 30.9 % (27.0-41.0); MEAN CELL VOLUME 95.3 fl (81.0-99.0); MEAN CORPUSCULAR HGB 28.7 pg (27.0-31.0); MEAN CORPUSCULAR HGB CONC 30.1 g/dl (33.0-37.0); MONO # 0.6 10*3/uL (0.1-1.0); MONO % 10.1 % (3.0-9.0); NEUT # 3.1 10*3/uL (2.3-7.9); NEUT % 56.2 % (47.0-73.0); PLATELET COUNT AUTOMATED 186 10*3/uL (130-400); RED BLOOD COUNT 3.42 10*6/uL (4.10-5.10); RED CELL DISTRI WIDTH 25.2 % (0-14.5); WHITE BLOOD COUNT 5.5 10*3/uL (4.8-10.8)
[2023-08-18 13:30] LABS: FREE T4 1.2 ng/dl (0.89-1.76); POTASSIUM 4.7 mmol/L (3.4-5.1); TOTAL PROTEIN 6.9 gm/dL (6.0-8.0)
== END | disposition home or self-care (01) ==
LOC: LAB 12:14
PROVIDERS: ATTEND Obstetrics & Gynecology Gynecology
DX: C54.9 Malignant neoplasm of corpus uteri, unspecified (principal); C54.1 Malignant neoplasm of endometrium; E06.4 Drug-induced thyroiditis

== ENCOUNTER → 2023-09-08 | Outpatient (CLI) | payer OTHER, MEDICAID ==
[2023-09-08 11:43] LABS: BASO % 0.4 % (0.0-1.0); EOS % 0.9 % (1.0-4.0); HEMATOCRIT 33.6 % (37.0-47.0); LYMPH # 1.4 10*3/uL (1.3-4.4); LYMPH % 31.5 % (27.0-41.0); MEAN CORPUSCULAR HGB 29.4 pg (27.0-31.0); MEAN CORPUSCULAR HGB CONC 30.1 g/dl (33.0-37.0); MEAN PLATELET VOLUME 8.8 fl (9.6-12.3); MONO # 0.6 10*3/uL (0.1-1.0); MONO % 12.6 % (3.0-9.0); NEUT # 2.4 10*3/uL (2.3-7.9); NEUT % 53.3 % (47.0-73.0); PLATELET COUNT AUTOMATED 160 10*3/uL (130-400); RED BLOOD COUNT 3.43 10*6/uL (4.10-5.10); RED CELL DISTRI WIDTH 23.9 % (0-14.5); WHITE BLOOD COUNT 4.5 10*3/uL (4.8-10.8)
[2023-09-08 12:05] LABS: FREE T4 1.12 ng/dl (0.89-1.76); POTASSIUM 4.1 mmol/L (3.4-5.1); TOTAL PROTEIN 6.9 gm/dL (6.0-8.0)
== END ==
LOC: LAB 11:20
PROVIDERS: ATTEND Obstetrics & Gynecology Gynecology
DX: C54.1 Malignant neoplasm of endometrium (principal); C54.9 Malignant neoplasm of corpus uteri, unspecified; E06.4 Drug-induced thyroiditis

== ENCOUNTER → 2023-09-29 | Outpatient (CLI) | payer MEDICAID ==
[2023-09-29 11:29] LABS: BASO % 0.5 % (0.0-1.0); EOS % 0.5 % (1.0-4.0); HEMATOCRIT 33.3 % (37.0-47.0); LYMPH # 2.5 10*3/uL (1.3-4.4); LYMPH % 37.9 % (27.0-41.0); MEAN CELL VOLUME 98.2 fl (81.0-99.0); MEAN CORPUSCULAR HGB 30.1 pg (27.0-31.0); MEAN CORPUSCULAR HGB CONC 30.6 g/dl (33.0-37.0); MEAN PLATELET VOLUME 10.6 fl (9.6-12.3); MONO # 0.6 10*3/uL (0.1-1.0); MONO % 9.2 % (3.0-9.0); NEUT # 3.4 10*3/uL (2.3-7.9); NEUT % 51.3 % (47.0-73.0); PLATELET COUNT AUTOMATED 139 10*3/uL (130-400); RED BLOOD COUNT 3.39 10*6/uL (4.10-5.10); RED CELL DISTRI WIDTH 20.5 % (0-14.5); WHITE BLOOD COUNT 6.6 10*3/uL (4.8-10.8)
[2023-09-29 12:17] LABS: FREE T4 1.2 ng/dl (0.89-1.76); POTASSIUM 4.1 mmol/L (3.4-5.1); TOTAL PROTEIN 7.2 gm/dL (6.0-8.0)
== END | disposition home or self-care (01) ==
LOC: LAB 11:08
PROVIDERS: ATTEND Obstetrics & Gynecology Gynecology
DX: C54.1 Malignant neoplasm of endometrium (principal); C54.9 Malignant neoplasm of corpus uteri, unspecified; E06.4 Drug-induced thyroiditis

== ENCOUNTER 2023-10-06 00:02 | Emergency (ER) | payer MEDICAID ==
[~2023-10-06] VITALS: Ht 152.4 cm; Wt 93.9 kg
== END 2023-10-06 01:36 | disposition home or self-care (01) ==
LOC: ED 00:02
DX: S00.83XA Contusion of other part of head, initial encounter (principal); M79.642 Pain in left hand; Z88.1 Allergy status to other antibiotic agents; Z91.040 Latex allergy status; Y04.0XXA Assault by unarmed brawl or fight, initial encounter; Y93.89 Activity, other specified; Y92.89 Other specified places as the place of occurrence of the external cause; Y99.8 Other external cause status

== ENCOUNTER → 2023-10-20 | Outpatient (CLI) | payer MEDICAID ==
[2023-10-20 12:06] LABS: BASO # 0.1 10*3/uL (0.0-0.1); BASO % 0.6 % (0.0-1.0); EOS # 0.1 10*3/uL (0.0-0.4); HEMATOCRIT 36.9 % (37.0-47.0); LYMPH # 2.3 10*3/uL (1.3-4.4); LYMPH % 24.4 % (27.0-41.0); MEAN CELL VOLUME 99.2 fl (81.0-99.0); MEAN CORPUSCULAR HGB 30.4 pg (27.0-31.0); MEAN CORPUSCULAR HGB CONC 30.6 g/dl (33.0-37.0); MONO # 0.9 10*3/uL (0.1-1.0); MONO % 9.2 % (3.0-9.0); NEUT % 63.6 % (47.0-73.0); PLATELET COUNT AUTOMATED 294 10*3/uL (130-400); RED BLOOD COUNT 3.72 10*6/uL (4.10-5.10); RED CELL DISTRI WIDTH 16.7 % (0-14.5); WHITE BLOOD COUNT 9.4 10*3/uL (4.8-10.8)
[2023-10-20 12:47] LABS: FREE T4 0.86 ng/dl (0.89-1.76); POTASSIUM 4.4 mmol/L (3.4-5.1); TOTAL PROTEIN 7.1 gm/dL (6.0-8.0)
== END | disposition home or self-care (01) ==
LOC: LAB 11:40
PROVIDERS: ATTEND Obstetrics & Gynecology Gynecology
DX: C54.1 Malignant neoplasm of endometrium (principal); C54.9 Malignant neoplasm of corpus uteri, unspecified; E06.4 Drug-induced thyroiditis

== ENCOUNTER → 2023-10-27 | Outpatient (CLI) | payer MEDICAID ==
[2023-10-27 12:51] LABS: HEMATOCRIT 37.4 % (37.0-47.0); LYMPH % 19.9 % (27.0-41.0); MEAN CELL VOLUME 99.5 fl (81.0-99.0); MEAN CORPUSCULAR HGB 30.3 pg (27.0-31.0); MEAN CORPUSCULAR HGB CONC 30.5 g/dl (33.0-37.0); MEAN PLATELET VOLUME 9.7 fl (9.6-12.3); MONO # 0.4 10*3/uL (0.1-1.0); MONO % 3.7 % (3.0-9.0); NEUT # 7.7 10*3/uL (2.3-7.9); NEUT % 75.5 % (47.0-73.0); PLATELET COUNT AUTOMATED 278 10*3/uL (130-400); RED BLOOD COUNT 3.76 10*6/uL (4.10-5.10); RED CELL DISTRI WIDTH 17.2 % (0-14.5); WHITE BLOOD COUNT 10.2 10*3/uL (4.8-10.8)
[2023-10-27 13:52] LABS: FREE T4 1.08 ng/dl (0.89-1.76); POTASSIUM 4.4 mmol/L (3.4-5.1); TOTAL PROTEIN 6.6 gm/dL (6.0-8.0); VITAMIN D, 25-HYDROXY 17.9 ng/mL (30-100)
== END | disposition home or self-care (01) ==
LOC: LAB 12:29
PROVIDERS: ATTEND Internal Medicine
DX: I10 Essential (primary) hypertension (principal); J44.9 Chronic obstructive pulmonary disease, unspecified; E11.9 Type 2 diabetes mellitus without complications

== ENCOUNTER → 2023-11-25 | Outpatient (CLI) | payer MEDICAID ==
[~2023-11-25] MED LIST changes: +HEPARIN SODIUM 300 UNITS/3 ML SYR IV SCH; +HEPARIN SODIUM 500 UNIT/5 ML SYR IV ONE; +HEPARIN SODIUM 500 UNIT/5 ML SYR IV SCH; +Iodixanol 320 100 ML VIAL IV ONE
== END | disposition home or self-care (01) ==
LOC: CT 11-22 15:00
PROVIDERS: ATTEND Obstetrics & Gynecology Gynecology
DX: C54.1 Malignant neoplasm of endometrium (principal); C53.9 Malignant neoplasm of cervix uteri, unspecified; N85.2 Hypertrophy of uterus; Z95.828 Presence of other vascular implants and grafts

== ENCOUNTER → 2023-12-01 | Outpatient (CLI) | payer MEDICAID ==
[~2023-12-01] MED LIST changes: -HEPARIN SODIUM 300 UNITS/3 ML SYR IV SCH; -HEPARIN SODIUM 500 UNIT/5 ML SYR IV ONE; -HEPARIN SODIUM 500 UNIT/5 ML SYR IV SCH; -Iodixanol 320 100 ML VIAL IV ONE
[2023-12-01 12:34] LABS: BASO # 0.1 10*3/uL (0.0-0.1); BASO % 0.7 % (0.0-1.0); EOS # 0.1 10*3/uL (0.0-0.4); HEMATOCRIT 39.2 % (37.0-47.0); LYMPH # 2.3 10*3/uL (1.3-4.4); LYMPH % 32.4 % (27.0-41.0); MEAN CELL VOLUME 99.2 fl (81.0-99.0); MEAN CORPUSCULAR HGB 29.4 pg (27.0-31.0); MEAN CORPUSCULAR HGB CONC 29.6 g/dl (33.0-37.0); MEAN PLATELET VOLUME 9.3 fl (9.6-12.3); MONO # 0.6 10*3/uL (0.1-1.0); NEUT # 3.8 10*3/uL (2.3-7.9); NEUT % 54.9 % (47.0-73.0); PLATELET COUNT AUTOMATED 268 10*3/uL (130-400); RED BLOOD COUNT 3.95 10*6/uL (4.10-5.10)
[2023-12-01 13:02] LABS: FREE T4 0.93 ng/dl (0.89-1.76); POTASSIUM 4.2 mmol/L (3.4-5.1)
== END | disposition home or self-care (01) ==
LOC: LAB 12:10
PROVIDERS: ATTEND Obstetrics & Gynecology Gynecology
DX: C53.1 Malignant neoplasm of exocervix (principal); C54.1 Malignant neoplasm of endometrium; E06.4 Drug-induced thyroiditis

== ENCOUNTER → 2024-01-10 | Outpatient (CLI) | payer OTHER ==
[2024-01-10 11:40] LABS: BASO # 0.1 10*3/uL (0.0-0.1); BASO % 0.7 % (0.0-1.0); EOS # 0.2 10*3/uL (0.0-0.4); EOS % 2.8 % (1.0-4.0); HEMATOCRIT 42.1 % (37.0-47.0); LYMPH % 41.8 % (27.0-41.0); MEAN CELL VOLUME 91.3 fl (81.0-99.0); MEAN CORPUSCULAR HGB 27.5 pg (27.0-31.0); MEAN CORPUSCULAR HGB CONC 30.2 g/dl (33.0-37.0); MONO # 0.6 10*3/uL (0.1-1.0); MONO % 8.4 % (3.0-9.0); NEUT # 3.3 10*3/uL (2.3-7.9); NEUT % 45.9 % (47.0-73.0); PLATELET COUNT AUTOMATED 348 10*3/uL (130-400); RED BLOOD COUNT 4.61 10*6/uL (4.10-5.10); RED CELL DISTRI WIDTH 14.2 % (0-14.5); WHITE BLOOD COUNT 7.1 10*3/uL (4.8-10.8)
[2024-01-10 12:10] LABS: FREE T4 1.35 ng/dl (0.89-1.76); POTASSIUM 3.8 mmol/L (3.4-5.1); TOTAL PROTEIN 6.9 gm/dL (6.0-8.0)
== END | disposition home or self-care (01) ==
LOC: LAB 10:58
PROVIDERS: ATTEND Obstetrics & Gynecology Gynecology
DX: C54.1 Malignant neoplasm of endometrium (principal); C54.9 Malignant neoplasm of corpus uteri, unspecified; E06.4 Drug-induced thyroiditis

== ENCOUNTER → 2024-01-27 | Outpatient (CLI) | payer OTHER ==
[2024-01-27 14:17] LABS: BASO % 0.5 % (0.0-1.0); EOS # 0.2 10*3/uL (0.0-0.4); EOS % 2.9 % (1.0-4.0); HEMATOCRIT 39.4 % (37.0-47.0); LYMPH # 2.7 10*3/uL (1.3-4.4); LYMPH % 35.1 % (27.0-41.0); MEAN CELL VOLUME 89.3 fl (81.0-99.0); MEAN CORPUSCULAR HGB 27.9 pg (27.0-31.0); MEAN CORPUSCULAR HGB CONC 31.2 g/dl (33.0-37.0); MEAN PLATELET VOLUME 9.1 fl (9.6-12.3); MONO # 0.7 10*3/uL (0.1-1.0); MONO % 9.3 % (3.0-9.0); NEUT % 51.9 % (47.0-73.0); PLATELET COUNT AUTOMATED 297 10*3/uL (130-400); RED BLOOD COUNT 4.41 10*6/uL (4.10-5.10); RED CELL DISTRI WIDTH 14.1 % (0-14.5); WHITE BLOOD COUNT 7.6 10*3/uL (4.8-10.8)
[2024-01-27 14:22] LABS: URINE AMPHETAMINES Negative (1000ng/ml); URINE BARBITURATES Negative (200ng/ml); URINE BENZODIAZEPINES Negative (200ng/ml); URINE CANNABINOIDS (THC) Positive (50ng/ml); URINE COCAINE Negative (300ng/ml); URINE METHADONE Negative (300ng/ml); URINE OPIATES Negative (300ng/ml); URINE PHENCYCLIDINE Negative (25ng/ml)
[2024-01-27 14:52] LABS: ALKALINE PHOSPHATASE 87 U/L (46-116); BUN 8 mg/dl (9-23); CHLORIDE 108 mmol/L (98-107); FREE T4 1.18 ng/dl (0.89-1.76); POTASSIUM 4.5 mmol/L (3.4-5.1); TOTAL PROTEIN 6.7 gm/dL (6.0-8.0)
[2024-01-27 14:53] LABS: SGPT/ALT < 7 U/L (5-49)
== END | disposition home or self-care (01) ==
LOC: LAB 13:49
PROVIDERS: ATTEND Obstetrics & Gynecology Gynecology
DX: C54.1 Malignant neoplasm of endometrium (principal); C54.9 Malignant neoplasm of corpus uteri, unspecified; E06.4 Drug-induced thyroiditis; Z79.891 Long term (current) use of opiate analgesic

== ENCOUNTER → 2024-02-28 | Outpatient (CLI) | payer OTHER ==
[2024-02-28 15:15] LABS: BASO # 0.1 10*3/uL (0.0-0.1); BASO % 0.8 % (0.0-1.0); EOS # 0.3 10*3/uL (0.0-0.4); EOS % 3.5 % (1.0-4.0); HEMATOCRIT 39.9 % (37.0-47.0); LYMPH # 2.9 10*3/uL (1.3-4.4); LYMPH % 37.3 % (27.0-41.0); MEAN CELL VOLUME 86.9 fl (81.0-99.0); MEAN CORPUSCULAR HGB 26.8 pg (27.0-31.0); MEAN CORPUSCULAR HGB CONC 30.8 g/dl (33.0-37.0); MEAN PLATELET VOLUME 9.2 fl (9.6-12.3); MONO # 0.7 10*3/uL (0.1-1.0); MONO % 9.6 % (3.0-9.0); NEUT # 3.8 10*3/uL (2.3-7.9); NEUT % 48.7 % (47.0-73.0); PLATELET COUNT AUTOMATED 350 10*3/uL (130-400); RED BLOOD COUNT 4.59 10*6/uL (4.10-5.10); RED CELL DISTRI WIDTH 13.4 % (0-14.5); WHITE BLOOD COUNT 7.7 10*3/uL (4.8-10.8)
[2024-02-28 15:40] LABS: FREE T4 1.37 ng/dl (0.89-1.76); POTASSIUM 4.1 mmol/L (3.4-5.1); TOTAL PROTEIN 6.9 gm/dL (6.0-8.0)
== END | disposition home or self-care (01) ==
LOC: LAB 14:52
PROVIDERS: ATTEND Obstetrics & Gynecology Gynecology
DX: C54.1 Malignant neoplasm of endometrium (principal); E06.4 Drug-induced thyroiditis; C54.9 Malignant neoplasm of corpus uteri, unspecified

== ENCOUNTER 2024-08-28 16:11 | Emergency (ER) | payer OTHER ==
[~2024-08-28] VITALS: Ht 152.4 cm; Wt 95.3 kg
[2024-08-28] MEDS ORDERED: AMOX-CLAV 875-1 EACH PO (16:53)
[2024-08-28] MEDS ORDERED: Amoxicillin/Clavulanate Pota 875 MG TAB PO ONE (16:55)
== END 2024-08-28 16:58 | disposition home or self-care (01) ==
LOC: ED 16:11
DX: J32.9 Chronic sinusitis, unspecified (principal); J02.9 Acute pharyngitis, unspecified; N18.9 Chronic kidney disease, unspecified; Z88.1 Allergy status to other antibiotic agents; Z86.16 Personal history of COVID-19

== ENCOUNTER → 2024-10-18 | Outpatient (CLI) | payer OTHER ==
[~2024-10-18] MED LIST changes: +AMOX-CLAV 875-1 EACH PO; +Iodixanol 320 100 ML VIAL IV ONE; +Iodixanol 320 100 ML VIAL ONE
== END | disposition home or self-care (01) ==
LOC: CT 10-11 14:00 → LAB 13:30 → CT 16:00
PROVIDERS: ATTEND Physician Assistant
DX: C53.8 Malignant neoplasm of overlapping sites of cervix uteri (principal); C77.2 Secondary and unspecified malignant neoplasm of intra-abdominal lymph nodes; E27.40 Unspecified adrenocortical insufficiency; N63.20 Unspecified lump in the left breast, unspecified quadrant; N94.10 Unspecified dyspareunia; R91.8 Other nonspecific abnormal finding of lung field; M87.051 Idiopathic aseptic necrosis of right femur; Z45.2 Encounter for adjustment and management of vascular access device; Z51.12 Encounter for antineoplastic immunotherapy; Z51.11 Encounter for antineoplastic chemotherapy

== ENCOUNTER 2024-11-03 09:53 | Emergency (ER) | payer OTHER ==
[~2024-11-03] VITALS: Ht 152.4 cm; Wt 91.2 kg
[~2024-11-03 09:53] MED LIST changes: -Iodixanol 320 100 ML VIAL IV ONE; -Iodixanol 320 100 ML VIAL ONE
[2024-11-03] MEDS ORDERED: FENTANYL1 EAC3 T (10:04)
[2024-11-03] MEDS ORDERED: OXYCODONE HCL20 M1 PO (10:04)
[2024-11-03] MEDS ORDERED: Dexamethasone Sodium Phospha 20 MG/5 ML VIAL IM ONE (10:15)
[2024-11-03] MEDS ORDERED: HYDROXYZINE HCL25 MG PO (10:18)
[2024-11-03] MEDS ORDERED: PREDNISONE20 M1 PO (10:18)
[2024-11-03] MEDS ORDERED: CORTISONE28 GM T (10:57)
[2024-11-03] MEDS ORDERED: PEPCID20 MG PO (10:57)
== END 2024-11-03 15:52 | disposition home or self-care (01) ==
LOC: ED 09:53
DX: L27.0 Generalized skin eruption due to drugs and medicaments taken internally (principal); T45.AX5A Adverse effect of immune checkpoint inhibitors and immunostimulant drugs, initial encounter; E66.9 Obesity, unspecified; Z68.30 Body mass index [BMI] 30.0-30.9, adult; Z88.1 Allergy status to other antibiotic agents; Z79.899 Other long term (current) drug therapy; X32.XXXA Exposure to sunlight, initial encounter; Y92.89 Other specified places as the place of occurrence of the external cause

== ENCOUNTER 2024-11-03 20:09 | Emergency (ER) | payer OTHER ==
[~2024-11-03] VITALS: Ht 154.9 cm; Wt 90.7 kg
[~2024-11-03 20:09] MED LIST changes: +CORTISONE28 GM T; +FENTANYL1 EAC3 T; +HYDROXYZINE HCL25 MG PO; +OXYCODONE HCL20 M1 PO; +PEPCID20 MG PO; +PREDNISONE20 M1 PO
[2024-11-03] MEDS ORDERED: diphenhydrAMINE hydrochloride 25 MG CAP PO ONE (20:25)
[2024-11-03] MEDS ORDERED: FAMOTIDINE 20 MG TAB PO ONE (20:25)
== END 2024-11-03 21:42 | disposition home or self-care (01) ==
LOC: ED 20:09
DX: R20.2 Paresthesia of skin (principal); R21 Rash and other nonspecific skin eruption; R52 Pain, unspecified; Z88.1 Allergy status to other antibiotic agents; Z79.899 Other long term (current) drug therapy

== ENCOUNTER 2024-12-26 14:50 | Emergency (ER) | payer OTHER ==
[~2024-12-26] VITALS: Ht 154.9 cm; Wt 88.0 kg
[2024-12-26] MEDS ORDERED: OXYCODONE HCL (IR) 5 MG TAB PO ONE (17:00)
[2024-12-26] MEDS ORDERED: VIBRAMYCIN100 MG PO (17:07)
[2024-12-26] MEDS ORDERED: PREDNISONE20 M1 PO (17:07)
== END 2024-12-26 17:18 | disposition home or self-care (01) ==
LOC: ED 14:50
DX: J20.8 Acute bronchitis due to other specified organisms (principal); Z20.822 Contact with and (suspected) exposure to COVID-19; N18.9 Chronic kidney disease, unspecified; Z88.1 Allergy status to other antibiotic agents; Z79.899 Other long term (current) drug therapy

== ENCOUNTER 2025-01-07 21:28 | Emergency (ER) | payer OTHER ==
[~2025-01-07] VITALS: Ht 162.5 cm; Wt 88.5 kg
[~2025-01-07 21:28] MED LIST changes: +VIBRAMYCIN100 MG PO
[2025-01-07 22:05] LABS: BASO # 0.0 10*3/uL (0.0-0.1); BASO % 0.3 % (0.0-1.0); EOS # 0.2 10*3/uL (0.0-0.4); EOS % 1.6 % (1.0-4.0); MEAN CELL VOLUME 90.2 fl (81.0-99.0); MEAN CORPUSCULAR HGB 27.3 pg (27.0-31.0); MEAN PLATELET VOLUME 9.4 fl (9.6-12.3); MONO # 0.9 10*3/uL (0.1-1.0); MONO % 6.5 % (3.0-9.0); NEUT # 8.8 10*3/uL (2.3-7.9); NEUT % 65.8 % (47.0-73.0); NUCLEATED RED BLOOD CELL 0.0 % (0.0-0.0); NUCLEATED RED BLOOD CELL 0.0 10*3/uL (0.0-0.0); PLATELET COUNT AUTOMATED 282 10*3/uL (130-400); RED CELL DISTRI WIDTH 15.4 % (0-14.5)
[2025-01-07 22:13] LABS: BILIRUBIN Negative (Negative); BLOOD Negative (Negative); CLARITY Clear (Clear); COLOR Yellow (Yellow); KETONE Negative (Negative); LEUKO ESTERASE Trace (Negative); NITRITE Negative (Negative); PH 6.0 (4.5-8.0); SPECIFIC GRAVITY 1.015 (1.001-1.030); UROBILINOGEN 0.2 E.U./dl (0.0-1.0)
[2025-01-07 22:40] LABS: BUN 19.0 mg/dl (9-23)
== END 2025-01-07 22:59 | disposition home or self-care (01) ==
LOC: ED 21:28
PROVIDERS: Nurse Practitioner Family
DX: R30.0 Dysuria (principal); Z88.1 Allergy status to other antibiotic agents; Z86.16 Personal history of COVID-19

== ENCOUNTER 2025-02-18 11:22 | Emergency (ER) | payer OTHER ==
[~2025-02-18] VITALS: Ht 154.9 cm; Wt 95.3 kg
[2025-02-18 12:47] LABS: BASO # 0.1 10*3/uL (0.0-0.1); BASO % 0.7 % (0.0-1.0); EOS # 0.5 10*3/uL (0.0-0.4); EOS % 4.9 % (1.0-4.0); MEAN CELL VOLUME 87.0 fl (81.0-99.0); MEAN CORPUSCULAR HGB 27.1 pg (27.0-31.0); MEAN PLATELET VOLUME 9.3 fl (9.6-12.3); MONO # 0.7 10*3/uL (0.1-1.0); MONO % 7.4 % (3.0-9.0); NEUT # 5.4 10*3/uL (2.3-7.9); NEUT % 57.8 % (47.0-73.0); NUCLEATED RED BLOOD CELL 0.0 % (0.0-0.0); NUCLEATED RED BLOOD CELL 0.0 10*3/uL (0.0-0.0); PLATELET COUNT AUTOMATED 286 10*3/uL (130-400); RED CELL DISTRI WIDTH 13.7 % (0-14.5)
[2025-02-18 13:07] LABS: BUN 16.0 mg/dl (9-23)
[2025-02-18] MEDS ORDERED: Amoxicillin/Clavulanate Pota 875 MG TAB PO ONE (13:55)
[2025-02-18] MEDS ORDERED: Water, Sterile 10 ML VIAL ONE (14:23)
== END 2025-02-18 14:14 | disposition home or self-care (01) ==
LOC: ED 11:22
PROVIDERS: Nurse Practitioner Family
DX: B34.9 Viral infection, unspecified (principal); H66.91 Otitis media, unspecified, right ear; Z86.16 Personal history of COVID-19; Z88.1 Allergy status to other antibiotic agents; Z20.822 Contact with and (suspected) exposure to COVID-19